=== PATIENT | female | born 1955 | race Hispanic/Latino ===

== ENCOUNTER 2018-09-14 14:42 | Outpatient (CLI) | payer BC | END 2018-09-14 14:43 | disposition home or self-care (01) | LOC: BICMAMMO 14:42 | PROVIDERS: ATTEND Family Medicine | DX: Z12.31 Encounter for screening mammogram for malignant neoplasm of breast (principal) | CPT/HCPCS: 77063; 77067 ==

== ENCOUNTER 2018-12-20 07:31 | Outpatient (CLI) | payer BC ==
[2018-12-20] MEDS ORDERED: ISOVUE-370 76%-LOCM 1 ML ONE (10:19)
--- NOTE | 2018-12-20 11:59 | CT ---
CT ANGIO OF CHEST PERFORMED WITH AND WITHOUT INTRAVENOUS CONTRAST ENHANCEMENT WITH 3D RECONSTRUCTIONS : Date: 12/20/18 HISTORY: Aortic root dilatation noted on echo at doctor's office. COMPARISON: There is report of a prior CT at [facility]; however, the only CT done at [facility] on this patient was a CT abdomen and pelvis. FINDINGS: The lungs are clear of any infiltrative process. No pulmonary nodules or pleural effusions. Pulmonary arteries are actually fairly well opacified. There is no evidence for pulmonary embolus. The ascending aorta is dilated with a maximum AP measurement obtained of 4.9 cm. At the level of the aortic root, there are band-like areas of decreased attenuation, not in an entirely typical appearanc e for dissection, but appear much too prominent and are not in the appropriate location for the sinus es. The larger of these areas is seen anteriorly, but there is also a posterior area. It is possible that this is all related to motion artifact and the fact that this examination is not gated. This is felt to be the more likely case, but I cannot definitely exclude some type of aortic root dissection. The proximal descending thoracic aorta is approximately 3.3 cm in distal and at the esophageal hiatu s is 2.9 cm. The visualized liver parenchyma shows no focal findings. Right and left adrenal glands are normal. There is prominent calcified plaque formation at the origin of the right renal artery. Bilateral breast masses are seen, some of which are associated with dense calcification. Please refer to the mammogram report concerning these findings. IMPRESSION: 1. Aneurysmal dilatation of the ascending aorta. AP measurements are 4.9 cm. The proximal descending thoracic aorta measures 3.3 cm and the distal descending thoracic aorta measures 2.9 cm. 2. At the level of the aortic root, there are findings which are felt to probably be related to serina fact, possibly related to heart rate and just general motion related to pulsatility, but it is diffic ult to exclude an aortic root dissection, although I think this is a less likely possibility. I still feel it needs to be investigated, either with correlation with echocardiogram or a repeat CT study u sing cardiac gating and possibly beta blockers if patient's heart rate is elevated. Findings were reviewed with Dr. Bailon and Dr. Melton, who agree. POS: [facility]
== END 2018-12-20 07:32 | disposition home or self-care (01) ==
LOC: BICCT 07:31
PROVIDERS: ATTEND Internal Medicine Cardiovascular Disease
DX: I42.2 Other hypertrophic cardiomyopathy (principal); I71.2 Thoracic aortic aneurysm, without rupture
CPT/HCPCS: 71275; 82565

== ENCOUNTER 2019-09-23 07:36 | Outpatient (CLI) | payer BC ==
--- NOTE | 2019-09-23 08:44 | CT ---
CT Chest W Con History: Aortic root dilatation. Comparison: CT angiogram chest November 2018 Findings: There are multiple masses in the right breast and left breast. Referred to mammogram for th is evaluation. Heart size is enlarged. There is left ventricular hypertrophy. There is right atrial enlargement. Numerous calcifications around the pancreatic head which is somewhat hypodense. Enhancing mass within hepatic segment 7 incompletely evaluated. There is also a peripherally enhancing mass within hepatic segment 8 near the hepatic dome. Hypodensity is also present hepatic segment 8 measuring 5 mm . 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 Mild scarring both lung apices. Mild bronchiectasis left lower lobe parenchymal scarring. No thoracic spine compression deformity. Impression: 1. Ascending aortic dilatation with size as above. 2. Multiple bilateral breast masses for which correlation with recent mammography recommended. 3. 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 4. Calcifications of the pancreatic head which is hypodense. Follow-up pancreatic protocol MRI in [address] [facility] recommended. 5. Multiple foci of enhancement within the liver may reflect flash filling hemangiomas although this should be interrogated on the pancreatic protocol MRI. 6. Left ventricular hypertrophy predominately involving the septum.
--- NOTE | 2019-09-23 09:52 | MMO ---
Bilateral MAMMO Bilat Screen [facility]. CLINICAL HISTORY: Patient is 64 years old and is seen for screening. The patient has no family history of breast cancer. The patient has no personal history of cancer. The patient has a history of left Excisional Biopsy in YEARS AGO - benign. VIEWS: The views performed were: bilateral craniocaudal with tomosynthesis and bilateral mediolateral oblique with tomosynthesis. FILMS COMPARED: The present examination has been compared to prior imaging studies performed at [facility] on 09/12/2017 and 09/14/2018. This study has been interpreted with the assistance of computer-aided detection. MAMMOGRAM FINDINGS: The breasts are heterogeneously dense, which could obscure a lesion on mammography. There are stable masses with associated calcifications seen in both breasts. There are no suspicious masses, suspicious calcifications, or new areas of architectural distortion. IMPRESSION: THERE IS NO MAMMOGRAPHIC EVIDENCE OF MALIGNANCY. A ROUTINE FOLLOW-UP MAMMOGRAM IN 1 YEAR IS RECOMMENDED. THE RESULTS OF THIS EXAM WERE SENT TO THE PATIENT. ACR BI-RADS Category 2 - Benign finding MAMMOGRAPHY NOTE: 1. A negative mammogram report should not delay a biopsy if a dominant of clinically suspicious mass is present. 2. Approximately 10% to 15% of breast cancers are not detected by mammography. 3. Adenosis and dense breasts may obscure an underlying neoplasm. Reported by: MABEL AL MD Electonically Signed: [id number]
[2019-09-23] MEDS ORDERED: ISOVUE-370 76%-LOCM 1 ML ONE (12:18)
== END 2019-09-23 07:37 | disposition home or self-care (01) ==
LOC: BICCT 07:36
PROVIDERS: ATTEND Family Medicine
DX: I77.810 Thoracic aortic ectasia (principal); N63.10 Unspecified lump in the right breast, unspecified quadrant; N63.20 Unspecified lump in the left breast, unspecified quadrant; K86.89 Other specified diseases of pancreas; I51.7 Cardiomegaly
CPT/HCPCS: 71260; 77063; 77067; 82565; Q9966

== ENCOUNTER 2019-12-24 13:09 | Outpatient (CLI) | payer BC ==
[2019-12-24 14:15] LABS: Estimated GFR-MDRD - POC Greater than 90
--- NOTE | 2019-12-24 16:31 | MRI ---
EXAM: MRI of the abdomen without and with contrast COMPARISON: CT chest 09/23/2019 HISTORY: Pancreas and liver mass TECHNIQUE: Multiplanar multi sequence MR images were taken of the abdomen without and with IV contras t. [An MRCP was performed.] FINDINGS: Liver: There is a 1.9 cm arterial enhancing lesion in the posterior aspect of the right lobe of the l iver. This becomes isointense on the rest of the postcontrast images and likely represents a portal venous shunt. There are scattered subcentimeter foci of high T2 signal throughout the liver which do not demonstrate enhancement and likely represent small cysts. There is a 9 mm focus of enhancement in the right lobe of the liver near the dome. On the postcontrast images, this may fill in on delayed phase images and may be a small hemangioma. Evaluation is limited secondary to motion of the diaphragm. No loss of signal is seen on out of phase images to suggest fatty infiltration. Gallbladder: No filling defects or gallbladder wall thickening. Common bile duct: Normal caliber without filling defects Adrenal glands: Unremarkable. Kidneys: No hydronephrosis or focal renal lesions. No abnormal areas of enhancement. Spleen: Unremarkable. Pancreas: No mass is seen. No pancreatic ductal dilatation. No abnormal enhancement. Retroperitoneum: No enlarged lymph nodes Bones: No marrow signal abnormality. IMPRESSION: 1. Scattered benign hepatic lesions as above. 2. No suspicious pancreatic mass identified
== END 2019-12-24 13:10 | disposition home or self-care (01) ==
LOC: SCSMRI 13:09
PROVIDERS: ATTEND Family Medicine
DX: K86.89 Other specified diseases of pancreas (principal); R16.0 Hepatomegaly, not elsewhere classified; K76.9 Liver disease, unspecified
CPT/HCPCS: 74183; 82565

== ENCOUNTER 2020-04-29 07:52 | Outpatient (CLI) | payer BC ==
--- NOTE | 2020-04-29 10:32 | CT ---
CTA OF THE THORAX UTILIZING IV CONTRAST AND 3D REFORMATTED IMAGING: INDICATION: History of followup aneurysm. COMPARISON: Prior CT examination dated 12/20/2018. FINDINGS: Mild aneurysmal dilatation of the ascending aorta is likely stable measuring up to 4.9 cm in its grea test AP dimension on image 88 of series 5. The aortic arch is mildly aneurysmal measuring 3.2 cm. The descending thoracic aorta at the level of the right main pulmonary artery is normal in caliber me asuring 2.7 cm. There are coronary artery and thoracic aorta calcifications. Mild hypertrophy of the left adrenal gland is similar-appearing. CalcificationS of the pancreatic h ead likely reflecting sequelae of prior pancreatitis is stable-appearing. No acute cardiopulmonary a bnormality is demonstrated. No acute osseous abnormality is demonstrated. No lymphadenopathy is emelia dent. Nodularity seen within both breasts is similar-appearing likely reflecting either underlying f ibroadenoma or small cysts. IMPRESSION: Stable aneurysmal dilatation of the ascending aorta and aortic arch. POS: [facility]
== END 2020-04-29 07:53 | disposition home or self-care (01) ==
LOC: SCSCT 07:52
PROVIDERS: ATTEND Thoracic Surgery (Cardiothoracic Vascular Surgery)
DX: I71.2 Thoracic aortic aneurysm, without rupture (principal)
CPT/HCPCS: 71275

== ENCOUNTER 2020-09-25 13:16 | Outpatient (CLI) | payer BC ==
--- NOTE | 2020-09-25 14:19 | MMO ---
Bilateral MAMMO Bilat Screen [facility]. CLINICAL HISTORY: Patient is 65 years old and is seen for screening. The patient has no family history of breast cancer. The patient has no personal history of cancer. The patient has a history of left Excisional Biopsy in YEARS AGO - benign. VIEWS: The views performed were: bilateral craniocaudal with tomosynthesis and bilateral mediolateral oblique with tomosynthesis. FILMS COMPARED: The present examination has been compared to prior imaging studies performed at [facility] on 09/12/2017, 09/14/2018 and 09/23/2019. This study has been interpreted with the assistance of computer-aided detection. MAMMOGRAM FINDINGS: The breasts are heterogeneously dense, which could obscure a lesion on mammography. Finding 1: There are stable benign appearing calcifications seen in both breasts. Finding 2: There are stable masses seen in both breasts. There are no suspicious masses, suspicious calcifications, or new areas of architectural distortion. IMPRESSION: THERE IS NO MAMMOGRAPHIC EVIDENCE OF MALIGNANCY. A ROUTINE FOLLOW-UP MAMMOGRAM IN 1 YEAR IS RECOMMENDED. THE RESULTS OF THIS EXAM WERE SENT TO THE PATIENT. ACR BI-RADS Category 2 - Benign finding MAMMOGRAPHY NOTE: 1. A negative mammogram report should not delay a biopsy if a dominant of clinically suspicious mass is present. 2. Approximately 10% to 15% of breast cancers are not detected by mammography. 3. Adenosis and dense breasts may obscure an underlying neoplasm. Reported by: FAISAL VALDEZ MD Electonically Signed: [id number]
== END 2020-09-25 13:17 | disposition home or self-care (01) ==
LOC: BICMAMMO 13:16
PROVIDERS: ATTEND Family Medicine
DX: Z12.31 Encounter for screening mammogram for malignant neoplasm of breast (principal)
CPT/HCPCS: 77063; 77067

== ENCOUNTER 2021-09-09 10:03 | Observation (INO) | payer BC ==
[2021-09-09 10:45] LABS: #Basophils 0.1 thou/uL (0.0-0.2); #Lymphocytes 1.6 thou/uL (1.20-3.40); #Monocytes 0.5 thou/uL (0.11-0.59); #Neutrophils 5.3 thou/uL (1.40-6.50); %Basophils 0.8 % (0.0-1.0); %Eosinophils 0.3 % (0.0-10.0); %Lymphocytes 21.4 % (21.0-51.0); %Monocytes 6.4 % (0.0-10.0); %Neutrophils 71.1 % (42.0-75.0); Hemoglobin 14.2 g/dL (12.0-16.0); Mean Corpuscular HGB CONC 32.6 g/dL (32.0-36.0); Mean Corpuscular Hemoglobin 30.5 pg (27.0-31.0); Mean Corpuscular Volume 93.5 fL (78.0-98.0); Mean Platelet Volume 7.7 fL (7.4-10.4); Platelet Count 273 thou/uL (130-400); RBC Distribution Width 12.2 % (11.5-14.5); Red Blood Cell (RBC) Count 4.65 mill/uL (4.20-5.40); White Blood Cell (WBC) Count 7.4 thou/uL (4.8-10.8)
[2021-09-09 11:06] LABS: ALT (SGPT) 24 U/L (8-55); AST (SGOT) 23 U/L (5-34); Albumin 4.4 g/dL (3.4-4.8); Alkaline Phosphatase 52 U/L (40-110); Anion Gap 12 mmol/L (10-20); BUN (Urea Nitrogen) 15 mg/dL (9.8-20.1); Bilirubin, Total 0.5 mg/dL (0.2-1.2); Calc. Creatinine Clearance 0 mL/min (70-130); Calcium 9.6 mg/dL (7.8-10.44); Carbon Dioxide 22 mmol/L (23-31); Chloride 108 mmol/L (98-107); Globulin 2.7 g/dL (2.4-3.5); Glucose 143 mg/dL (80-115); Magnesium 2.2 mg/dL (1.6-2.6); Potassium 3.9 mmol/L (3.5-5.1); Protein, Total 7.1 g/dL (5.8-8.1); Sodium 138 mmol/L (136-145)
[2021-09-09 11:27] LABS: CKMB 3.3 ng/mL (0-6.6)
[2021-09-09] MEDS ORDERED: Ondansetron ODT 4 MG TAB PO PRN (14:34)
[2021-09-09] MEDS ORDERED: HumaLOG 300 UNITS/3 ML VIAL SC PRN ×2 (14:34)
[2021-09-09] MEDS ORDERED: Dextrose 5% in Water 1,000 ML IV PRN (14:34)
[2021-09-09] MEDS ORDERED: Calcium Carbonate 500 MG ChewTAB PO PRN (14:34)
[2021-09-09] MEDS ORDERED: Dextrose 50% Abboject 50 ML SYRINGE SLOW IVP PRN (14:34)
[2021-09-09 15:56] LABS: Troponin I 0.044 ng/mL (< 0.028)
[2021-09-09 17:01] LABS: Troponin I 0.053 ng/mL (< 0.028)
[2021-09-09 17:05] VITALS: BMI 24.8
[2021-09-09] MEDS: Acetaminophen 325 MG TAB PO PRN (23:05)
[2021-09-10 01:06] LABS: SARS-CoV-2 PCR by NAA Not Detected (NotDetected)
[2021-09-10 05:28] LABS: #Eosinphils 0.1 thou/uL (0.0-0.7); #Lymphocytes 2.3 thou/uL (1.20-3.40); #Monocytes 0.5 thou/uL (0.11-0.59); #Neutrophils 2.9 thou/uL (1.40-6.50); %Basophils 0.2 % (0.0-1.0); %Eosinophils 1.3 % (0.0-10.0); %Monocytes 9.3 % (0.0-10.0); %Neutrophils 50.2 % (42.0-75.0); Hemoglobin 13.5 g/dL (12.0-16.0); Mean Corpuscular HGB CONC 32.5 g/dL (32.0-36.0); Mean Corpuscular Hemoglobin 30.6 pg (27.0-31.0); Mean Corpuscular Volume 94.2 fL (78.0-98.0); Mean Platelet Volume 7.6 fL (7.4-10.4); Platelet Count 245 thou/uL (130-400); RBC Distribution Width 12.4 % (11.5-14.5); Red Blood Cell (RBC) Count 4.43 mill/uL (4.20-5.40); White Blood Cell (WBC) Count 5.8 thou/uL (4.8-10.8)
[2021-09-10 05:53] LABS: Anion Gap 14 mmol/L (10-20); BUN (Urea Nitrogen) 13 mg/dL (9.8-20.1); Calc. Creatinine Clearance 83 mL/min (70-130); Calcium 9.1 mg/dL (7.8-10.44); Carbon Dioxide 26 mmol/L (23-31); Chloride 107 mmol/L (98-107); Glucose 112 mg/dL (80-115); Potassium 4.7 mmol/L (3.5-5.1); Sodium 142 mmol/L (136-145)
[2021-09-10] MEDS: Acetaminophen 325 MG TAB PO PRN (08:29)
[2021-09-10] MEDS ORDERED: Alendronate Sodium 70 mg Tablet PO SCH (09:00)
[2021-09-10] MEDS ORDERED: Ezetimibe 10 MG TAB PO SCH (09:00)
[2021-09-10] MEDS ORDERED: Atorvastatin Calcium 20 MG TAB PO SCH (09:00)
[2021-09-10] MEDS ORDERED: Metoprolol Tartrate 50 MG TAB PO SCH (09:00)
[2021-09-10] MEDS ORDERED: metFORMIN 500 MG TAB PO SCH (09:00)
[2021-09-10] MEDS ORDERED: UBIDECARENONE 10 MG PO SCH (09:00)
[2021-09-10] MEDS ORDERED: Fluticasone Propionate Nasal Spray 16 gm Bottle NASAL SCH (15:45)
[2021-09-10 16:10] VITALS: BP 128/63; TEMP 97.8
[2021-09-11] MEDS ORDERED: Fluticasone Propionate Nasal Spray 16 gm Bottle NASAL SCH (09:00)
== END 2021-09-10 17:20 | disposition home or self-care (01) ==
LOC: EEVIPCON 10:03 → ERS 10:03 → 2SW 12:56
PROVIDERS: ADMIT Family Medicine; ATTEND Family Medicine
DX: R55 Syncope and collapse (principal); I42.2 Other hypertrophic cardiomyopathy; I10 Essential (primary) hypertension; E11.9 Type 2 diabetes mellitus without complications; E78.00 Pure hypercholesterolemia, unspecified; F41.9 Anxiety disorder, unspecified; M81.0 Age-related osteoporosis without current pathological fracture; F17.210 Nicotine dependence, cigarettes, uncomplicated; E78.5 Hyperlipidemia, unspecified; Z79.84 Long term (current) use of oral hypoglycemic drugs; Z79.899 Other long term (current) drug therapy
CPT/HCPCS: 36415; 36416; 71045; 80048; 80053; 82553; 83735; 84484; 85025; 93005; G0378; U0003; U0005

== ENCOUNTER 2021-09-27 14:20 | Outpatient (CLI) | payer BC | END 2021-09-27 14:21 | disposition home or self-care (01) | LOC: BICMAMMO 14:20 | PROVIDERS: ATTEND Family Medicine | DX: Z12.31 Encounter for screening mammogram for malignant neoplasm of breast (principal); Z91.89 Other specified personal risk factors, not elsewhere classified | CPT/HCPCS: 77063; 77067 ==

== ENCOUNTER 2022-09-28 13:59 | Outpatient (CLI) | payer MEDICARE, BC | END 2022-09-28 14:00 | disposition home or self-care (01) | LOC: BICMAMMO 13:59 | PROVIDERS: ATTEND Family Medicine | DX: Z12.31 Encounter for screening mammogram for malignant neoplasm of breast (principal); Z91.89 Other specified personal risk factors, not elsewhere classified | CPT/HCPCS: 77063; 77067 ==

== ENCOUNTER 2023-01-12 08:47 | Outpatient (CLI) | payer MEDICARE, BC | END 2023-01-12 08:48 | disposition home or self-care (01) | LOC: BICMAMMO 08:47 | PROVIDERS: ATTEND Family Medicine | DX: M81.0 Age-related osteoporosis without current pathological fracture (principal); M85.89 Other specified disorders of bone density and structure, multiple sites | CPT/HCPCS: 77080 ==

== ENCOUNTER 2023-02-09 14:18 | Outpatient (CLI) | payer MEDICARE, BC | END 2023-02-09 14:19 | disposition home or self-care (01) | LOC: BICCT 14:18 | PROVIDERS: ATTEND Internal Medicine Cardiovascular Disease | DX: I77.810 Thoracic aortic ectasia (principal); E27.8 Other specified disorders of adrenal gland | CPT/HCPCS: 71275; 82565 ==

== ENCOUNTER 2023-10-16 11:16 | Outpatient (CLI) | payer MEDICARE, BC | END 2023-10-16 11:17 | disposition home or self-care (01) | LOC: BICMAMMO 11:16 | PROVIDERS: ATTEND Family Medicine | DX: Z12.31 Encounter for screening mammogram for malignant neoplasm of breast (principal); Z91.89 Other specified personal risk factors, not elsewhere classified | CPT/HCPCS: 77063; 77067 ==

== ENCOUNTER 2023-12-19 08:45 | Outpatient (CLI) | payer MEDICARE ==
[2023-12-19] MEDS ORDERED: Iopamidol 370 76% 100 ML VIAL ONE (09:19)
== END 2023-12-19 08:46 | disposition home or self-care (01) ==
LOC: BICCT 08:45
PROVIDERS: ATTEND Thoracic Surgery (Cardiothoracic Vascular Surgery)
DX: I71.21 Aneurysm of the ascending aorta, without rupture (principal)
CPT/HCPCS: 71275; 82565

== ENCOUNTER 2024-10-18 11:08 | Outpatient (CLI) | payer MEDICARE | END 2024-10-18 11:09 | disposition home or self-care (01) | LOC: BICMAMMO 11:08 | PROVIDERS: ATTEND Family Medicine | DX: Z12.31 Encounter for screening mammogram for malignant neoplasm of breast (principal) | CPT/HCPCS: 77063; 77067 ==

== ENCOUNTER 2025-10-20 08:23 | Outpatient (CLI) | payer MEDICARE | END 2025-10-20 08:24 | disposition home or self-care (01) | LOC: BICMAMMO 08:23 | PROVIDERS: ATTEND Family Medicine | DX: Z12.31 Encounter for screening mammogram for malignant neoplasm of breast (principal); Z91.89 Other specified personal risk factors, not elsewhere classified | CPT/HCPCS: 77063; 77067 ==